=== PATIENT | male | born 1935 | race Caucasian/White ===

== ENCOUNTER 2020-06-22 13:08 | Emergency (ER) | payer BC, OTHER ==
[~2020-06-22] VITALS: Ht 167.6 cm; Wt 68.0 kg
[2020-06-22] MEDS ORDERED: CLOP75TA15 PO (13:22)
[2020-06-22] MEDS ORDERED: LISI10TA29 PO (13:22)
[2020-06-22] MEDS ORDERED: ATOR80TA PO (13:22)
--- NOTE | 2020-06-22 13:25 | NUR ---
PT IS IN ROOM #1B. DR SNOW EVALUATED THE PT.
--- NOTE | 2020-06-22 14:53 | NUR ---
PT WAS D/C'd TO HOME. D/C INSTRUCTIONS GIVEN TO THE PT BY DR SNOW.
[2020-06-22 14:54] VITALS: BP 141/73
== END 2020-06-22 14:54 | disposition home or self-care (01) ==
LOC: ER 13:08
DX: S00.83XA Contusion of other part of head, initial encounter (principal); W18.30XA Fall on same level, unspecified, initial encounter; Y92.89 Other specified places as the place of occurrence of the external cause; S60.222A Contusion of left hand, initial encounter; S63.92XA Sprain of unspecified part of left wrist and hand, initial encounter; Z79.02 Long term (current) use of antithrombotics/antiplatelets; Z95.1 Presence of aortocoronary bypass graft; D69.6 Thrombocytopenia, unspecified; Z79.899 Other long term (current) drug therapy; N40.0 Benign prostatic hyperplasia without lower urinary tract symptoms
CPT/HCPCS: 70450; 73110; 73130; A4663